=== PATIENT | female | born 1985 | race Caucasian/White ===

== ENCOUNTER 2018-04-28 21:38 | Inpatient (IN) | payer OTHER ==
[2018-04-28] MEDS: Lactated Ringer's 1,000 ML IV SCH (22:00)
[2018-04-28] MEDS ORDERED: Butorphanol Tartrate 1 MG/ML VIAL SLOW IVP PRN (22:17)
[2018-04-28] MEDS ORDERED: Methylergonovine 0.2 MG/ML VIAL IM PRN (22:17)
[2018-04-28] MEDS ORDERED: NS / Oxytocin 40 units/1000ml 1,000 ML IV PRN (22:17)
[2018-04-28] MEDS ORDERED: Carboprost 250 MCG/ML AMP IM PRN (22:17)
[2018-04-28] MEDS ORDERED: Misoprostol 200 MCG TAB PR PRN (22:17)
[2018-04-28] MEDS ORDERED: Lidocaine 1% (PF) 30 ML VIAL SC PRN (22:17)
[2018-04-28] MEDS ORDERED: NS w/ Oxytocin 10 units 500 ML IV SCH ×2 (22:17)
[2018-04-28] MEDS ORDERED: Diphenoxylate HCl/Atropine Tablet PO PRN (22:17)
[2018-04-28] MEDS ORDERED: Ibuprofen 800 MG TAB PO PRN (22:17)
[2018-04-28] MEDS ORDERED: HYDROcodone/Acetaminophen 5/325 mg Tablet PO PRN (22:17)
[2018-04-28 22:30] VITALS: BMI 35.3
[2018-04-28 23:01] LABS: Hemoglobin 13.2 g/dL (12.0-16.0); Mean Corpuscular Hemoglobin 28.5 pg (27.0-31.0); Mean Corpuscular Volume 83.8 fL (78.0-98.0); Mean Platelet Volume 8.2 fL (7.4-10.4); Platelet Count 264 thou/uL (130-400); RBC Distribution Width 14.6 % (11.5-14.5); Red Blood Cell (RBC) Count 4.61 mill/uL (4.20-5.40)
[2018-04-28 23:39] LABS: Syphilis Antibody Nonreactive (Nonreactive); Syphilis Antibody Index 0.03 S/CO (<1.00 Non-Reactive)
[2018-04-28 23:40] LABS: HBSAg Index 0.15 S/CO (0-0.99); Hep B Surf Ag Non-Reactive S/CO (NonReactive)
[2018-04-29] MEDS ORDERED: Misoprostol 100 MCG TAB PO SCH (00:05)
[2018-04-29] MEDS: Lactated Ringer's 1,000 ML IV SCH ×2 (02:00→13:09)
[2018-04-29] MEDS: Ondansetron PF 4 MG/2 ML Vial IVP PRN ×2 (10:13→16:07)
[2018-04-29] MEDS ORDERED: Fentanyl 4 mcg/Bup 0.1% Cadd 100 ML ONE (12:10)
[2018-04-29] MEDS ORDERED: Bupivacaine 0.5% 10 ML VIAL ONE (12:26)
[2018-04-29] MEDS ORDERED: Fentanyl 100 MCG/2 ML VIAL ONE ×2 (12:26→20:28)
[2018-04-29] MEDS ORDERED: Lactated Ringer's 500 ML IV PRN (13:01)
[2018-04-29] MEDS ORDERED: Promethazine HCl 25 MG/ML VIAL IM PRN ×2 (13:01→21:46)
[2018-04-29] MEDS ORDERED: Hydrocerin (Eucerin) Cream 120 gm Jar TOP PRN (13:01)
[2018-04-29] MEDS ORDERED: ePHEDrine/0.9% NaCl/PF SYRINGE 50 mg/10 ml SLOW IVP PRN (13:01)
[2018-04-29] MEDS ORDERED: Ondansetron PF 4 MG/2 ML Vial IVP PRN ×3 (13:01→21:54)
[2018-04-29] MEDS ORDERED: Naloxone HCl 0.4 mg/ml Vial IVP PRN ×4 (13:01→21:46)
[2018-04-29] MEDS ORDERED: diphenhydrAMINE 50 MG/ML VIAL IVP PRN ×2 (13:01→21:46)
[2018-04-29] MEDS ORDERED: Acetaminophen 325 MG TAB PO PRN (13:01)
[2018-04-29] MEDS ORDERED: Bupivacaine 0.25% 10 ML VIAL EPIDURAL ONE (13:15)
[2018-04-29] MEDS ORDERED: Communication Order-Pharmacy FS SCH ×3 (13:15→22:00)
[2018-04-29] MEDS ORDERED: Fentanyl 4 mcg/Bupivacaine 0.1% Cassette 100 ML EPIDURAL SCH (13:15)
[2018-04-29] MEDS ORDERED: Fentanyl 100 MCG/2 ML VIAL I-THECAL ONE (13:30)
[2018-04-29] MEDS ORDERED: PHENYLEPHRINE-NS 100 MCG/ML 10 ML SYRINGE ONE ×2 (16:48→18:57)
[2018-04-29] MEDS ORDERED: Succinylcholine Chloride 20 MG/ML 10 ml SYRINGE FS ONE ×2 (16:48→20:28)
[2018-04-29] MEDS ORDERED: Ondansetron PF 4 MG/2 ML Vial ONE ×2 (16:48→18:54)
[2018-04-29] MEDS ORDERED: Ketorolac Tromethamine 30 MG/ML VIAL ONE ×2 (16:48→18:54)
[2018-04-29] MEDS ORDERED: CEFAZOLIN/Water 2 GM/20 ML SYRINGE SLOW IVP SCH (18:30)
[2018-04-29] MEDS ORDERED: CEFAZOLIN 2 GM/50 ML BAG ONE (18:33)
[2018-04-29] MEDS ORDERED: Lidocaine 2% 10 ML INJ ONE (18:33)
[2018-04-29] MEDS ORDERED: Bicitra 30 ML UDCUP PO SCH (18:45)
[2018-04-29] MEDS ORDERED: Oxytocin 10 UNITS/ML VIAL ONE ×2 (18:54→20:46)
[2018-04-29] MEDS ORDERED: CEFAZOLIN 2 GM/50 ML-DEXTROSE 2 GM in Premix Bag 1 BAG IVPB SCH (19:00)
[2018-04-29 19:27] LABS: Actual Bicarbonate (HCO3v) 23 mEq/L (22-28); pH (Cord, venous) 7.28 (7.32-7.43)
[2018-04-29] MEDS ORDERED: Tranexamic Acid 1,000 MG/10 ML VIAL ONE (19:36)
[2018-04-29] MEDS ORDERED: Morphine PF 1 MG/ML SYR ONE (19:51)
[2018-04-29] MEDS ORDERED: Meperidine HCl/PF 25 MG/ML VIAL ONE ×2 (19:59→20:05)
[2018-04-29] MEDS ORDERED: Midazolam HCl 2 mg/2 ml Vial ONE (20:06)
[2018-04-29] MEDS ORDERED: Ketamine 50 MG/ML (10ML VIAL) ONE (20:10)
[2018-04-29] MEDS ORDERED: Methylergonovine 0.2 MG/ML VIAL ONE (20:19)
[2018-04-29] MEDS ORDERED: Dexamethasone 4 mg/ml Vial ONE (20:46)
[2018-04-29] MEDS ORDERED: HYDROmorphone 2 MG/ML VIAL SLOW IVP PRN (21:46)
[2018-04-29] MEDS ORDERED: Meperidine HCl/PF 25 MG/ML VIAL SLOW IVP PRN (21:46)
[2018-04-29] MEDS ORDERED: Naloxone HCl 0.4 mg/ml Vial IV PRN (21:46)
[2018-04-29] MEDS ORDERED: Eucerin (Mineral Oil/Petrolatum,White) 30 gm Jar TOP PRN (21:46)
[2018-04-29] MEDS ORDERED: L&D-Morphine 4 MG/ML VIAL SLOW IVP PRN (21:46)
[2018-04-29] MEDS ORDERED: Ondansetron HCl/PF 4 MG/2 ML Vial IVP PRN (21:46)
[2018-04-29] MEDS ORDERED: Promethazine HCl 25 MG SUPP PR PRN (21:46)
[2018-04-29] MEDS ORDERED: Ketorolac Tromethamine 30 MG/ML VIAL IVP PRN (21:46)
[2018-04-29] MEDS ORDERED: NS / Oxytocin 40 units/1000ml 1,000 ML IV SCH (21:54)
[2018-04-29] MEDS ORDERED: diphenhydrAMINE 25 MG CAP PO PRN (21:54)
[2018-04-29] MEDS ORDERED: Bisacodyl 10 MG SUPP PR PRN (21:54)
[2018-04-29] MEDS ORDERED: Lanolin Ointment 7 GM TUBE TOP PRN (21:54)
[2018-04-29] MEDS ORDERED: Ketorolac Tromethamine 30 MG/ML VIAL IVP SCH (22:00)
[2018-04-29] MEDS: metroNIDAZOLE 500 MG in Premix Bag 1 BAG IVPB SCH (23:00)
[2018-04-29] MEDS ORDERED: Ampicillin/Sulbactam 3 GM in Sodium Chloride 0.9% 100 ML IVPB SCH (23:00)
[2018-04-30] MEDS ORDERED: Morphine PF 1 MG/ML SYR ONE (02:23)
[2018-04-30] MEDS ORDERED: Dexamethasone 4 mg/ml Vial ONE (02:24)
[2018-04-30] MEDS ORDERED: Oxytocin 10 UNITS/ML VIAL ONE (02:24)
[2018-04-30] MEDS ORDERED: Ketorolac Tromethamine 30 MG/ML VIAL ONE (02:24)
[2018-04-30] MEDS ORDERED: Ondansetron PF 4 MG/2 ML Vial ONE (02:24)
--- NOTE | 2018-04-30 03:49 | CON ---
DATE OF CONSULTATION: REGULAR PHYSICIAN: Partha Chavira MD CONSULTING PHYSICIAN: Justin Vazquez MD HISTORY OF PRESENT ILLNESS: Ms. Wade is a 32-year-old female, I was called to the operating room by Dr. Chavira. He had just performed a section for non-reassuring heart rate tracing. He was concerned regarding bleeding around the left ovary, as well as potential bleeding from an extension in the right uterine angle. The left ovary was visualized and there was a tear in the capsule of the lower pole. There was a small amount of bleeding and some Floseal was placed over this with extremely good hemostasis of this area. Attention was then turned to the uterine angle extension. It could be seen that there was bleeding from the lower aspect of the extension. An attempt was made to repair this area, but continued heavy bleeding ensued. Pressure was held on the area and Dr. Goncalves was asked to come to the operating room. The patient was put to sleep for relaxation and better exposure. With Dr. Goncalves's help, it could be seen that there was an area of uterine artery that was actively bleeding. A Maria Elena clamp was placed across the area and deep sutures were placed into the cervix superiorly and inferiorly to the clamp. Care was taken to place all sutures within the cervix and were completely visualized with each placement. Once these two interrupted sutures were placed, good hemostasis was seen. Decision was made to place Floseal in the angle and once this was done, complete hemostasis was noted. The uterus was then replaced into the abdominal cavity. No attempt was made to reperitonealize. The fascia was closed using 2 sutures of PDS, brought laterally to the midline. The subcutaneous tissue was thoroughly irrigated and made dry using Bovie coagulation technique. Dr. Chavira then closed the skin. Estimated blood loss at the completion of the procedure was approximately 1500 mL. QBL is pending/ Blood had been typed and crossed, and 1 unit was transfused at the completion of the case. Job ID: [id number] [facility]
[2018-04-30] MEDS: Ampicillin/Sulbactam 3 GM in Sodium Chloride 0.9% 100 ML IVPB SCH ×6 (04:30→21:45)
--- NOTE | 2018-04-30 08:08 | OP ---
DATE OF PROCEDURE: 04/29/2018 LOCATION: [place], [place]. RESIDENT SURGEON: Dr. David Santiago. ATTENDING SURGEON: Dr. Partha Chavira. PREOPERATIVE DIAGNOSES: 1. Term intrauterine . 2. Induction of labor. 3. Primary low-transverse section. Secondary to intolerance of labor. POSTOPERATIVE DIAGNOSES: 1. Term intrauterine , delivered. 2. Primary low-transverse section. ANESTHESIA: Spinal epidural converted to general. PROCEDURE PERFORMED: Primary low-transverse section. INDICATIONS: The patient is a 32-year-old, who initially presented for post- dates induction. Throughout the day as Pitocin was titrated up the heart tones showed deep and recurrent variable. As such, decision was made to perform a primary low-transverse section. DESCRIPTION OF PROCEDURE: After risks, benefits, and alternatives were explained to the patient, she gave informed consent. Preoperative antibiotics included Ancef 2 g IV. The patient was placed in supine position with a left tilt and prepped and draped in usual sterile fashion. A Pfannenstiel incision was made with a scalpel and carried down to the level of the fascia, which was sharply nicked. The fascial cut was extended bilaterally with Beauchamp scissors. The inferior and superior edges of the cut fascial edges were elevated with Luciana clamps and underlying rectus muscles were bluntly dissected free. The recti were divided digitally and retracted manually. The perineum was entered bluntly and retracted manually. A bladder blade was placed. A low-transverse score was made with a scalpel and the uterus was entered in the midline with the scalpel. Clear fluid was seen. Hysterotomy was extended manually. The was noted to be vertex and lower in the pelvis and was delivered by fundal pressure and use of vacuum. Mouth and naris were bulb suctioned. Cord was clamped and cut and grossly normal female was handed to awaiting nurse. Cord gas was obtained in addition to cord blood. The placenta was spontaneously delivered, found to be intact with 3-vessel cord, and discarded. The uterus was then externalized and the endometrium was curetted with a dry lap. The bladder blade was placed and the uterus was found to have a right-sided inferior extension down to the cervix. The uterus was closed then with a running locking 0 Vicryl suture starting on the left hysterotomy border. Following this the apex and distal portion of the inferior extension noted to be oozy. As such, another onipmw-ct-efqkp 0 Vicryl suture was placed and the extension appeared to be hemostatic at that time. Upon examination of the left ovary prior to internalization of the uterus, there was found to be a what appeared to be a small hematoma versus a tear in the tunica albuginea. This bleeding was attempted to be controlled with cauterization and was successfully cauterized; however after internalization of the uterus, it was noted to be lightly bleeding. ADDENDUM: At this point, the on-call OB hospitalist was called to assist. The uterus was externalized and the left ovary was visualized and appeared to be lightly bleeding. Decision was made to apply FloSeal to the left ovary after which hemostasis was noted. Subsequently, the distal extension of the anterior lower uterine segment was again visualized. At this point, it was noted to not be hemostatic. At this point, the uterus was noted to be boggy. The uterus was elevated and the OB hospitalist attempted to throw a wjooal-yh-ddafs suture into the distal portion of the hysterotomy extension after placement of one agjbzm-ox-xdskg stitch. The proximal portion was noted to be lightly bleeding as such. Dr. Vazquez attempted to throw another dnpffx-el-rfwlx stitch. At which point, it was thought the uterine vein was hit with the needle tip and moderate bleeding was noted. At this point, pressure was applied to the distal portion of the hysterotomy extension and pressure was maintained. Additionally, Dr. Goncalves was called in for assistance. Methargen was given as the uterus was again noted to be boggy. Upon Dr. Goncalves's arrival to the OR, the pressure was released again noting of moderate bleeding from the abjljp-nw-rfddp suture. The pressure was then reapplied and Maria Elena clamp was then used to clamp the bleeding vessel. After this, a ligating suture was placed below the Maria Elena clamp and another ligating suture above the Maria Elena clamp. The Maria Elena clamp was then removed and the bleeding was noted to be hemostatic. After this, Dr. Goncalves left the OR and the resident physician, Dr. Vazquez and Dr. Chavira completed the procedure and the hysterotomy extension was noted to be hemostatic throughout. The uterus subsequently became firm, was internalized, and again noted to be hemostatic. The fascia was closed with a running nonlocking 0 Vicryl suture. The subcutaneous tissue was irrigated and there were no bleeders. The skin was approximated with anne and a pressure dressing was placed. All counts were correct. The patient tolerated the procedure well and was taken to the recovery room in stable condition. Of note, the patient was transitioned from spinal anesthesia to general anesthesia prior to Dr. Vazquez arriving to the room. ESTIMATED BLOOD LOSS: 1750 mL. COMPLICATIONS: 1. hemorrhage. 2. Cervical hysterotomy extension. SPECIMENS: Cord blood sent to the lab for blood type. FINDINGS: 1. Grossly normal infant with Apgars of 8 and 9. 2. Grossly normal placenta with 3-vessel cord discarded. DRAINS: Hernandez to gravity draining clear urine. Job ID: [id number] [facility]
[2018-04-30] MEDS: Lactated Ringer's 1,000 ML IV SCH (08:10)
[2018-04-30] MEDS: metroNIDAZOLE 500 MG in Premix Bag 1 BAG IVPB SCH ×3 (08:22→23:05)
[2018-04-30 09:01] LABS: Hemoglobin 10.6 g/dL (12.0-16.0); Mean Corpuscular HGB CONC 33.1 g/dL (32.0-36.0); Mean Corpuscular Hemoglobin 27.5 pg (27.0-31.0); Mean Corpuscular Volume 83.2 fL (78.0-98.0); Mean Platelet Volume 7.8 fL (7.4-10.4); Platelet Count 198 thou/uL (130-400); RBC Distribution Width 14.2 % (11.5-14.5); Red Blood Cell (RBC) Count 3.84 mill/uL (4.20-5.40); White Blood Cell (WBC) Count 14.9 thou/uL (4.8-10.8)
[2018-04-30] MEDS: Prenatal Vitamin 1 TAB PO SCH (09:50)
[2018-04-30] MEDS: Docusate Calcium (SURFAK) 240 MG CAP PO SCH ×3 (09:50→20:42)
[2018-04-30] MEDS: Ferrous Sulfate 325 MG TAB PO SCH ×3 (09:50→20:14)
[2018-04-30] MEDS ORDERED: HYDROcodone/Acetaminophen 5/325 mg Tablet PO PRN ×2 (10:00)
[2018-04-30] MEDS ORDERED: Meperidine HCl/PF 25 MG/ML VIAL IM PRN (10:00)
[2018-04-30] MEDS: HYDROcodone/Acetaminophen 7.5/325 mg Tablet PO PRN ×3 (12:30→21:43)
[2018-04-30] MEDS: Ibuprofen 800 MG TAB PO SCH ×3 (15:03→21:43)
[2018-04-30] MEDS: Simethicone Chewable 80 MG TAB PO PRN ×2 (16:30→20:42)
[2018-05-01] MEDS: Ampicillin/Sulbactam 3 GM in Sodium Chloride 0.9% 100 ML IVPB SCH ×2 (03:29→09:52)
[2018-05-01] MEDS: HYDROcodone/Acetaminophen 7.5/325 mg Tablet PO PRN ×5 (03:44→20:49)
[2018-05-01] MEDS: metroNIDAZOLE 500 MG in Premix Bag 1 BAG IVPB SCH ×2 (05:29→13:54)
[2018-05-01] MEDS: Ibuprofen 800 MG TAB PO SCH ×3 (05:29→22:23)
[2018-05-01] MEDS: Ferrous Sulfate 325 MG TAB PO SCH ×2 (08:12→22:52)
[2018-05-01] MEDS: Prenatal Vitamin 1 TAB PO SCH (08:55)
[2018-05-01] MEDS: Docusate Calcium (SURFAK) 240 MG CAP PO SCH ×2 (08:55→20:49)
[2018-05-01] MEDS: Simethicone Chewable 80 MG TAB PO PRN (11:52)
[2018-05-01] MEDS ORDERED: metroNIDAZOLE 500 MG TAB PO SCH (15:00)
[2018-05-01] MEDS: Cephalexin 250 MG CAP PO SCH ×2 (16:13→22:23)
[2018-05-01] MEDS: metroNIDAZOLE 500 MG TAB PO SCH (22:23)
[2018-05-02] MEDS: Ibuprofen 800 MG TAB PO SCH ×3 (05:25→21:45)
[2018-05-02] MEDS: HYDROcodone/Acetaminophen 7.5/325 mg Tablet PO PRN ×5 (05:26→21:44)
[2018-05-02] MEDS: Docusate Calcium (SURFAK) 240 MG CAP PO SCH ×2 (09:15→21:46)
[2018-05-02] MEDS: Prenatal Vitamin 1 TAB PO SCH (09:15)
[2018-05-02] MEDS: Cephalexin 250 MG CAP PO SCH ×3 (09:15→21:46)
[2018-05-02] MEDS: Ferrous Sulfate 325 MG TAB PO SCH ×2 (09:16→23:14)
[2018-05-02] MEDS: metroNIDAZOLE 500 MG TAB PO SCH ×3 (09:16→21:46)
[2018-05-02] MEDS: Simethicone Chewable 80 MG TAB PO PRN (11:36)
[2018-05-03] MEDS: Ibuprofen 800 MG TAB PO SCH ×2 (05:20→14:35)
[2018-05-03] MEDS: HYDROcodone/Acetaminophen 7.5/325 mg Tablet PO PRN ×3 (05:24→14:36)
[2018-05-03 08:20] VITALS: BP 120/58; TEMP 98.1
[2018-05-03] MEDS: Cephalexin 250 MG CAP PO SCH ×2 (10:10→16:11)
[2018-05-03] MEDS: Docusate Calcium (SURFAK) 240 MG CAP PO SCH (10:11)
[2018-05-03] MEDS: metroNIDAZOLE 500 MG TAB PO SCH ×2 (10:11→16:12)
[2018-05-03] MEDS: Simethicone Chewable 80 MG TAB PO PRN (10:11)
[2018-05-03] MEDS: Prenatal Vitamin 1 TAB PO SCH (10:11)
[2018-05-03] MEDS: Ferrous Sulfate 325 MG TAB PO SCH (10:16)
--- NOTE | 2018-05-07 14:00 | PQF ---
Ángela Dean, SAVITA Merino MD [id number] [address] [place] [place] [address] [id number] CLINICAL DOCUMENTATION CLARIFICATION FORM: POST DISCHARGE Addendum to original discharge summary date: ____ Late entry note date: __ DATE: 05/07/18 ATTN: Dr Chavira Please exercise your independent, professional judgment in responding to the clarification form. Clinical indicators are provided on the bottom of this form for your review Please check appropriate box(s): In the description of the operative procedure a ___Tear in the right uterine angle was noted by the surgeon. If possible would you please further clarify if this was: [ X ] Incidental occurrence inherent in the surgical procedure [ ] Complication of the procedure [ ] Other [ ] Unable to determine For continuity of documentation, please document condition throughout progress notes and discharge summary. Thank You. CLINICAL INDICATORS - SIGNS / SYMPTOMS / LABS intraoperative bleeding extension of uterine incision heavy extensive bleeding RISK FACTORS section TREATMENTS: transfusion intraoperative consult with contorl of bleeding (This form is maintained as a part of the permanent medical record) 2014 [employer]. All Rights Reserved Courtney [email or web address] [phone] MTDD
--- NOTE | 2018-05-07 14:07 | PQF ---
Ángela Dean ROLAND R MD [id number] [facility] [id number] CLINICAL DOCUMENTATION CLARIFICATION FORM: POST DISCHARGE DATE: 05/07/18 ATTN: Dr. Chavira Please exercise your independent, professional judgment in responding to the clarification form. Clinical indicators are provided on the bottom of this form for your review Please check appropriate box(s): [ X ] Acute blood loss anemia [ ] Post-op anemia related to acute blood loss [ ] Anemia: [ ] Aplastic [ ] Nutritional [ ] Drug induced (specify) ___ [ ] Hemolytic [ ] Hereditary [ ] Acquired [ ] Autoimmune [ ] Non-autoimmune [ ] Enzyme disorder [ ] Unable to determine In addition, please specify: Present on Admission (POA): [ ] Yes [ X ] No [ ] Unable to determine For continuity of documentation, please document condition throughout progress notes and discharge summary. Thank You. CLINICAL INDICATORS - SIGNS / SYMPTOMS / LABS acute intra operative heavy bleeding with 1500 ml blood loss transfusion post operative Hematocrit pre op 38.7, post op 31.9 Hemoglobin pre op 13.2, post op 10.6 RISK FACTORS section with heavy bleeding TREATMENTS: Intraop consult for control of bleeding Transfusion of blood products (This form is maintained as a part of the permanent medical record) 2014 [employer] All Rights Reserved Courtney [email or web address] [phone] MTDD
--- NOTE | 2018-05-07 15:23 | OP ---
DATE OF PROCEDURE: ADDENDUM: At this point, the on-call OB hospitalist was called to assist. The uterus was externalized and the left ovary was visualized and appeared to be lightly bleeding. Decision was made to apply FloSeal to the left ovary after which hemostasis was noted. Subsequently, the distal extension of the anterior lower uterine segment was again visualized. At this point, it was noted to not be hemostatic. At this point, the uterus was noted to be boggy. The uterus was elevated and the OB hospitalist attempted to throw a ciloyo-za-ehfxt suture into the distal portion of the hysterotomy extension after placement of one qerpzh-sg-kfbrn stitch. The proximal portion was noted to be lightly bleeding as such. Dr. Vazquez attempted to throw another pelldv-oq-gdgnd stitch. At which point, it was thought the uterine vein was hit with the needle tip and moderate bleeding was noted. At this point, pressure was applied to the distal portion of the hysterotomy extension and pressure was maintained. Additionally, Dr. Goncalves was called in for assistance. Methargen was given as the uterus was again noted to be boggy. Upon Dr. Goncalves's arrival to the OR, prepped and the pressure was released again noting of moderate bleeding from the rygsyb-th-bavez suture. The pressure was then reapplied and Maria Elena clamp was then used to clamp the bleeding vessel. After this, a ligating suture was placed below the Maria Elena clamp and another ligating suture above the Maria Elena clamp. The Maria Elena clamp was then removed and the bleeding was noted to be hemostatic. After this, Dr. Goncalves left the OR and the resident physician, Dr. Vazquez and Dr. Chavira completed the procedure and the hysterotomy extension was noted to be hemostatic throughout. The uterus subsequently became firm, was internalized, and again noted to be hemostatic. The fascia was closed with a running nonlocking 0 Vicryl suture. The subcutaneous tissue was irrigated and there were no bleeders. The skin was approximated with anne and a pressure dressing was placed. All counts were correct. The patient tolerated the procedure well and was taken to the recovery room in stable condition. Of note, the patient was transitioned from spinal anesthesia to general anesthesia prior to Dr. Vazquez arriving to the room. ESTIMATED BLOOD LOSS: 1750 mL. COMPLICATIONS: 1. hemorrhage. 2. Cervical hysterotomy extension. SPECIMENS: Cord blood sent to the lab for blood type. FINDINGS: 1. Grossly normal infant with Apgars of 8 and 9. 2. Grossly normal placenta with 3-vessel cord discarded. DRAINS: Hernandez to gravity draining clear urine. Job ID: [id number]
== END 2018-05-03 18:40 | disposition home or self-care (01) | DRG 787 ==
LOC: L&D 21:38 → 3SW 04-30 11:29
PROVIDERS: ADMIT Family Medicine; ATTEND Family Medicine
PROC: 3E033VJ Introduction of Other Hormone into Peripheral Vein, Percutaneous Approach (ICD-10-PCS; 2018-04-28)
PROC: 10907ZC Drainage of Amniotic Fluid, Therapeutic from Products of Conception, Via Natural or Artificial Opening (ICD-10-PCS; 2018-04-28)
PROC: 10D00Z1 Extraction of Products of Conception, Low, Open Approach (ICD-10-PCS; principal; 2018-04-29)
PROC: 0UQ90ZZ Repair Uterus, Open Approach (ICD-10-PCS; 2018-04-29)
PROC: 0W3R0ZZ Control Bleeding in Genitourinary Tract, Open Approach (ICD-10-PCS; 2018-04-29)
PROC: 30233N1 Transfusion of Nonautologous Red Blood Cells into Peripheral Vein, Percutaneous Approach (ICD-10-PCS; 2018-04-29)
PROC: 30233R1 Transfusion of Nonautologous Platelets into Peripheral Vein, Percutaneous Approach (ICD-10-PCS; 2018-04-29)
DX: O71.81 Laceration of uterus, not elsewhere classified (principal); D62 Acute posthemorrhagic anemia; O48.0 Post-term pregnancy; Z3A.40 40 weeks gestation of pregnancy; O76 Abnormality in fetal heart rate and rhythm complicating labor and delivery; Z37.0 Single live birth; O67.8 Other intrapartum hemorrhage
CPT/HCPCS: 36415; 36430; 51702; 82805; 85027; 86780; 86850; 86900; 86901; 87340; J0295; J1100; J1885; J2001; J2175; J2210; J2250; J2274; J2405; J2590; J3010; J3490; J7050; P9016; P9059

== ENCOUNTER 2019-07-01 08:20 | Emergency (ER) | payer OTHER, SELFPAY ==
--- NOTE | 2019-07-01 09:22 | RAD ---
EXAM: Chest PA and lateral: HISTORY: Cough. Fever. COMPARISON: None. FINDINGS: Heart: Normal cardiac silhouette Aorta: Unremarkable Pulmonary vessels: Normal Costophrenic angles: Costophrenic angles are clear. Lungs: No consolidation or masses. Pneumothorax: No pneumothorax Osseous structures: No osseous abnormalities IMPRESSION: No acute cardiopulmonary process.
== END 2019-07-01 10:31 | disposition home or self-care (01) ==
LOC: ERS 08:20
DX: J06.9 Acute upper respiratory infection, unspecified (principal)
CPT/HCPCS: 71046; 87804